=== PATIENT | female | born 1950 | race Caucasian/White ===

== ENCOUNTER → 2017-12-15 | Outpatient (CLI) | payer BC ==
--- NOTE | 2017-12-15 16:55 | DIAGNOSTIC IMAGING REPORT ---
R LOWER EXT JOINT WITHOUT CLINICAL HISTORY: 67 years-old Female presenting with RIGHT KNEE PAIN, pain along the posterior right knee, difficulty bending, possible Islas's cyst, history of breast cancer. TECHNIQUE: Multisequence, multiplanar MR imaging of the right knee was performed without the use of intravenous contrast. IV contrast: None. COMPARISON: None. FINDINGS: Localizer images: Unremarkable. Bone marrow: Minimal subchondral cystic change at the inferior aspect of the lateral patellar facet. Minimal bony cystic change along the median prominence of the inferior aspect of the patella. No bony edema. Articular cartilage: Articular cartilage fissuring of the lateral patellar facet with irregularity and fissuring of the lateral most aspect of the apposing trochlear cartilage. Greater than 50% thickness articular cartilage thinning of the medial talar facet cartilage and, to a lesser extent, the apposing medial trochlear cartilage. Remainder of articular cartilage intact. Menisci: Medial and lateral menisci intact. Cruciate ligaments: Anterior and posterior cruciate ligaments intact. Collateral ligament: Increased signal intensity at the origin of the medial collateral ligament suggests chronic degeneration. Lateral collateral ligament complex including the biceps femoris tendon, fibular collateral ligament, popliteus tendon, and iliotibial band intact. Quadriceps and patellar tendons: Increased signal intensity at the origin of the patellar tendon. Quadriceps tendon intact. Extensive infrapatellar subcutaneous edema and laminar fluid immediately superficial to the patellar tendon insertion. No significant infiltration of Hoffa's fat pad. Knee joint effusion: Trace knee joint effusion. No popliteal cyst. Muscle: Normal muscle bulk and muscle signal intensity. IMPRESSION: 1. Significant patellofemoral compartment degenerative change as detailed above. 2. 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 3. Trace knee joint effusion. 4. Infrapatellar bursitis. 5. 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 Electronically signed by: Hal Weber M.D. 12/15/2017 4:53 PM Dictated Date/Time: 12/15/2017 4:48 PM
== END | disposition home or self-care (01) ==
LOC: C.MRIBC 15:40
PROVIDERS: ATTEND Orthopaedic Surgery Sports Medicine
DX: M25.561 Pain in right knee (principal)